=== PATIENT | female | born 1955 | race Caucasian/White ===

== ENCOUNTER → 2022-10-10 10:28 | Outpatient (BNVA) | payer MEDICARE, SELFPAY | PROVIDERS: PCP Family Medicine; Referring Provider Specialist; Visit Provider Psychiatry & Neurology Neurology | DX: H92.01 Otalgia, right ear (principal); H93.11 Tinnitus, right ear; H90.3 Sensorineural hearing loss, bilateral; C94.80 Other specified leukemias not having achieved remission; Z79.69 Long term (current) use of other immunomodulators and immunosuppressants; Z95.828 Presence of other vascular implants and grafts | CPT/HCPCS: 99203 ==

== ENCOUNTER 2022-10-28 07:23 | Outpatient (CLI) | payer MEDICARE, SELFPAY ==
--- NOTE | 2022-10-28 10:30 | USCV_ITS ---
Amanda Ruvalcaba Age: 67 Gender: F : 1955 Exam Date: 10/28/2022 09:31 Ordering Phys: Yohan Parikh MD Technologist: MARY [place] [facility] [place]: Rt ear and head pain Risk Factors: Previous Vascular Surgery: Right Brachial BP: / Left Brachial BP: / Right Left Velocity (cm/s) Spectral Plaque Velocity (cm/s) Spectral Plaque Syst/Diast Broadening Syst/Diast Broadening 73.90/ 18.20 Prox CCA 88.00 / 20.50 77.90/ 18.20 Mid CCA 96.70 / 24.20 59.20/ 11.40 Distal CCA 78.60 / 24.80 48.90/ 11.70 Prox ICA 93.70 / 24.90 89.30/ 35.00 Mid ICA 102.00/ 29.00 118.50/32.80 Distal ICA 87.90 / 32.10 49.90 ECA 61.10 1.52 ICA/CCA 1.05 Antegrade Vertebral Antegrade 41.90/ 6.80 cm/s 55.00/ 19.30 cm/s Tri Subclavian Bi 110.6 89.20 0 CONCLUSIONS Right ICA stenosis <50%. Mild calcified atheromatous plaque right carotid bulb/ICA. Left ICA stenosis <50%. Mild atheromatous plaque left carotid bulb/ICA. Intimal thickening in the common carotid arteries and internal carotid arteries bilaterally. Normal antegrade Doppler flow noted in the right vertebral artery. Normal antegrade Doppler flow noted in the left vertebral artery. Mickey Ramirez MD (Electronically Signed) Final Date: 29 October 2022 16:39 S
--- NOTE | 2022-10-28 11:00 | MR_ITS ---
WS: [id number] MRI BRAIN WITH AND WITHOUT CONTRAST HISTORY: R29.90 - Unspecified symptoms and signs involving the nervous system. COMPARISON: None available. TECHNIQUE: Multiplanar imaging performed through the brain with MultiHance 14 ml's IV. No acute infarcts are seen. Lamb-white matter differentiation is well preserved. Minimal small vesse l ischemic type changes. No significant hippocampal atrophy. No susceptibility artifacts or prior lacunar infarcts. Ventricles and extra-axial spaces are normal. Increased sella turcica with increased CSF. This pituitary gland is being flattened and displaced inf eriorly consistent with empty sella turcica. The infundibulum is still evident. There are no areas of abnormal enhancement or nodularity. No deviation of the optic chiasm. Visualized posterior fossa and brainstem are also normal. Postcontrast images are negative for masses or vascular malformations. Dural venous sinuses are normal. Paranasal sinuses: Well aerated with no significant disease. Mastoid air cells: Normal. Calvarium and scalp: Normal. MR/MR head wo/w con [id number] IMPRESSION: 1. No acute infarct or enhancing mass. 2. Empty sella turcica. Increased CSF in the sella turcica. This is most consi stent with an empty sella. The differential would include Rathke cleft cyst alt eduar this is thought less likely. No solid component. 3. No prior infarct. 4. No hippocampal atrophy.
== END 2022-10-28 07:24 | disposition home or self-care (01) ==
PROVIDERS: PCP Family Medicine; Visit Provider Psychiatry & Neurology Neurology
DX: R29.90 Unspecified symptoms and signs involving the nervous system (principal); R90.89 Other abnormal findings on diagnostic imaging of central nervous system; R51.9 Headache, unspecified; H92.01 Otalgia, right ear; I65.23 Occlusion and stenosis of bilateral carotid arteries
CPT/HCPCS: 70553; 93880; A9577